=== PATIENT | female | born 1955 | race Caucasian/White ===

== ENCOUNTER 2018-03-28 22:33 | Emergency (ER) | payer OTHER ==
[~2018-03-28] VITALS: Ht 162.6 cm; Wt 75.7 kg
[2018-03-28 22:39] VITALS: Ht 162.6 cm; Wt 75.7 kg
[2018-03-28 23:17] LABS: BASOPHIL % 0.3 % (0-2); PLATELET COUNT 310 x10^3mcL (130-400); RED CELL DISTRIBUTION WIDTH 13.1 % (11.5-14.5)
[2018-03-28 23:30] LABS: ALKALINE PHOSPHATASE 82 U/L (46-116); ALT/SGPT 26 U/L (14-59); AST/SGOT 19 U/L (15-37); BILIRUBIN TOTAL 0.6 mg/dL (0.20-1.00); CALCIUM 8.9 mg/dL (8.5-10.1); CARBON DIOXIDE 27.2 mmol/L (21-32); CHLORIDE SERUM 102 mmol/L (98-107); CREATININE SERUM 0.9 mg/dL (0.6-1.0); GFR1 > 60 mL/min; GLUCOSE SERUM 109 mg/dL (74-106); LIPASE 100 IU/L (73-393); POTASSIUM SERUM 3.5 mmol/L (3.5-5.1); SODIUM SERUM 139 mmol/L (136-145); TOTAL PROTEIN, SERUM 7.6 g/dL (6.4-8.2)
[2018-03-28 23:32] LABS: ALBUMIN 3.2 g/dL (3.4-5.0)
[2018-03-29 01:51] VITALS: BP 99/56
== END 2018-03-29 01:51 | disposition home or self-care (01) ==
LOC: ED 22:33
PROVIDERS: Emergency Medicine
DX: R11.10 Vomiting, unspecified (principal); R19.7 Diarrhea, unspecified; R10.13 Epigastric pain
CPT/HCPCS: J0500; J1885; J2405; J7030